=== PATIENT | male | born 1955 ===

== ENCOUNTER 2021-11-10 07:22 | Day surgery (SDC) | payer MEDICARE ==
[~2021-11-10] VITALS: Ht 170.2 cm; Wt 99.9 kg
[2021-11-10] MEDS ORDERED: MASON NATURAL2000 IU PO (08:04)
[2021-11-10] MEDS ORDERED: LIPITOR 40MG TA40 MG PO (08:04)
[2021-11-10] MEDS ORDERED: CVS SPECTRAVIT1 EA15 PO (08:05)
[2021-11-10 08:17] VITALS: BP 139/97; PULSE 86; TEMP 97.8
[2021-11-10 09:25] VITALS: BP 106/73; PULSE 88; TEMP 97.5
--- NOTE | 2021-11-10 09:25 | NUR ---
pt returned to [facility] via cart from endo room, walked to chair with standby assist. call light in reach, more awake now and taking juice and muffin, no c/o
[2021-11-10 09:40] VITALS: BP 109/87; PULSE 84
--- NOTE | 2021-11-10 09:40 | NUR ---
pt visits with friend in room, no c/o or requests
[2021-11-10 09:55] VITALS: BP 110/76; PULSE 95
[2021-11-10 10:15] VITALS: BP 116/70; PULSE 80
--- NOTE | 2021-11-10 10:20 | NUR ---
pt waits to talk with Dr. SUDHAKAR raymond intact, up in room, dressed, takes water
--- NOTE | 2021-11-10 10:45 | NUR ---
Dr quan see pt, then discharge inst. given for polyp removal, followup and precautions today, with verbal understanding. pt then discharged via w/c with friend to car
== END 2021-11-10 10:45 | disposition home or self-care (01) ==
LOC: SDCO 07:22
DX: Z12.11 Encounter for screening for malignant neoplasm of colon (principal); D12.4 Benign neoplasm of descending colon; D12.8 Benign neoplasm of rectum; K64.0 First degree hemorrhoids; E66.01 Morbid (severe) obesity due to excess calories; E78.2 Mixed hyperlipidemia
CPT/HCPCS: J2704; J7030